=== PATIENT | female | born 1935 | race Caucasian/White ===

== ENCOUNTER 2018-02-13 15:59 | Inpatient (IN) | payer MEDICARE, OTHER ==
[2018-02-13 17:55] LABS: ADD MAN DIFF? NO
[2018-02-13 18:01] LABS: BASOPHILS % 0.3 % (0.0-2.0); EOSINOPHILS # 0.1 10^3/ul (0.0-0.5); EOSINOPHILS % 1.3 % (0.0-7.0); HEMATOCRIT 35.1 % (37.0-47.0); LYMPHOCYTES # 3.7 10^3/ul (0.8-2.9); LYMPHOCYTES % 42.7 % (15.0-51.0); MEAN CORPUSCULAR HEMOGLOBIN 30.7 pg (29.0-33.0); MEAN CORPUSCULAR HGB CONC 31.3 g/dl (32.0-37.0); MEAN PLATELET VOLUME 11.4 fl (7.4-10.4); MONOCYTE # 0.7 10^3/ul (0.3-0.9); MONOCYTES % 8.2 % (0.0-11.0); NEUTROPHIL # 4.1 10^3/ul (1.6-7.5); NEUTROPHILS % 47.4 % (39.0-77.0); PLATELET COUNT 172 10^3/UL (140-415); RED BLOOD COUNT 3.58 10^6/ul (4.20-5.40); RED CELL DISTRIBUTION WIDTH 13.9 % (11.5-14.5)
[2018-02-13 18:01] LABS: WHITE BLOOD COUNT 8.7 10^3/ul (4.8-10.8)
[2018-02-13 18:06] LABS: ADD UMIC NO; UR ASCORBIC ACID NEGATIVE (NEGATIVE); UR BILIRUBIN (Dip) NEGATIVE (NEGATIVE); UR BLOOD (Dip) NEGATIVE (NEGATIVE); UR CLARITY CLEAR (CLEAR); UR COLOR STRAW (YELLOW); UR GLUCOSE (Dip) NEGATIVE (NEGATIVE); UR KETONES (Dip) NEGATIVE (NEGATIVE); UR LEUKOCYTE ESTERASE (Dip) NEGATIVE Leu/ul (NEGATIVE); UR NITRITE (Dip) NEGATIVE (NEGATIVE); UR SPECIFIC GRAVITY (Dip) 1.005 (1.003-1.030); UR TOTAL PROTEIN (Dip) NEGATIVE (NEGATIVE); UR UROBILINOGEN (Dip) NEGATIVE (NEGATIVE)
[2018-02-13 18:11] LABS: HEMOGLOBIN A1C 7.6 % (0-5.9)
[2018-02-13 18:17] LABS: ANION GAP 10 (5-13); BLOOD UREA NITROGEN 29 mg/dl (7-20); CALCIUM 9.4 mg/dl (8.4-10.2); CARBON DIOXIDE 24 mmol/L (21-31); CHLORIDE 105 mmol/L (97-110); CHOL/HDL RATIO 3.7 RATIO; CHOLESTEROL 165 mg/dl (100-200); CREATININE 1.08 mg/dl (0.44-1.00); GLUCOSE 171 mg/dl (70-220); HDL CHOLESTEROL 44 mg/dl (33-92); LDL CHOLESTEROL,CALCULATED 93 mg/dl; POTASSIUM 4.6 mmol/L (3.5-5.1); SODIUM 139 mmol/L (135-144); TRIGLYCERIDES 139 mg/dl (0-149)
[2018-02-13 18:20] LABS: AMPHETAMINE/METHAMPHETAMINE Negative (NEGATIVE); BARBITURATES Negative (NEGATIVE); BENZODIAZEPINES Negative (NEGATIVE); CANNABINOIDS Negative (NEGATIVE); COCAINE Negative (NEGATIVE); INR 1.01; OPIATES Negative (NEGATIVE); PROTIME 13.4 Sec (11.9-14.9)
[2018-02-13 18:21] LABS: PARTIAL THROMBOPLASTIN TIME 35.4 Sec (23.0-35.0)
[2018-02-13 19:47] LABS: SALICYLATE < 1.0 mg/dl (5.0-30.0)
[2018-02-13] MEDS ORDERED: ONDANSETRON 4 MG INJ IV ×2 (20:00→21:30)
[2018-02-13] MEDS ORDERED: ACETAMINOPHEN 325 MG TAB PO ×2 (20:00→21:30)
[2018-02-13] MEDS: ASPIRIN 81 MG TAB PO (20:08)
[2018-02-13] MEDS ORDERED: NACL 0.9% 3 ML SYG IV (21:30)
[2018-02-13] MEDS ORDERED: NITROGLYCERIN (SL) 0.4 MG TAB SL (21:30)
[2018-02-13] MEDS: LORAZEPAM 2 MG INJ IV (22:07)
[2018-02-13 22:27] LABS: CREATINE KINASE 76 IU/L (23-200)
[2018-02-13 22:40] LABS: CK INDEX 3.1; CK-MB 2.35 ng/ml (0.0-2.4); TROPONIN-I 0.032 ng/ml (0.000-0.120)
[2018-02-14 03:58] LABS: ADD MAN DIFF? NO
[2018-02-14 04:08] LABS: HEMOGLOBIN A1C 7.5 % (0-5.9)
[2018-02-14 04:17] LABS: CREATINE KINASE 88 IU/L (23-200)
[2018-02-14 04:19] LABS: IRON 66 ug/dl (35-150)
[2018-02-14 04:21] LABS: ALANINE AMINOTRANSFERASE 31 IU/L (13-69); ALKALINE PHOSPHATASE 45 IU/L (42-121); ANION GAP 7 (5-13); ASPARTATE AMINO TRANSFERASE 31 IU/L (15-46); BILIRUBIN,TOTAL 0.2 mg/dl (0.2-1.3); BLOOD UREA NITROGEN 24 mg/dl (7-20); CALCIUM 9.3 mg/dl (8.4-10.2); CARBON DIOXIDE 27 mmol/L (21-31); CHLORIDE 108 mmol/L (97-110); CREATININE 0.97 mg/dl (0.44-1.00); GLUCOSE 164 mg/dl (70-220); MAGNESIUM 2.2 mg/dl (1.7-2.5); POTASSIUM 4.5 mmol/L (3.5-5.1); SODIUM 142 mmol/L (135-144)
[2018-02-14 04:22] LABS: ALBUMIN/GLOBULIN RATIO 0.93; BILIRUBIN,INDIRECT 0.2 mg/dl (0-1.1); CHOL/HDL RATIO 3.1 RATIO; CHOLESTEROL 135 mg/dl (100-200); HDL CHOLESTEROL 43 mg/dl (33-92); LDL CHOLESTEROL,CALCULATED 70 mg/dl; TOTAL PROTEIN 6.2 g/dl (6.1-8.1); TRIGLYCERIDES 109 mg/dl (0-149)
[2018-02-14 04:24] LABS: BASOPHILS % 0.3 % (0.0-2.0); EOSINOPHILS # 0.2 10^3/ul (0.0-0.5); EOSINOPHILS % 2.5 % (0.0-7.0); HEMATOCRIT 31.8 % (37.0-47.0); HEMOGLOBIN 9.9 g/dl (12.0-16.0); LYMPHOCYTES # 3.1 10^3/ul (0.8-2.9); LYMPHOCYTES % 48.4 % (15.0-51.0); MEAN CORPUSCULAR HEMOGLOBIN 30.5 pg (29.0-33.0); MEAN CORPUSCULAR HGB CONC 31.1 g/dl (32.0-37.0); MEAN CORPUSCULAR VOLUME 97.8 fl (82.0-101.0); MEAN PLATELET VOLUME 11.5 fl (7.4-10.4); MONOCYTE # 0.6 10^3/ul (0.3-0.9); MONOCYTES % 8.8 % (0.0-11.0); NEUTROPHIL # 2.5 10^3/ul (1.6-7.5); NEUTROPHILS % 39.8 % (39.0-77.0); PLATELET COUNT 156 10^3/UL (140-415); RED BLOOD COUNT 3.25 10^6/ul (4.20-5.40); RED CELL DISTRIBUTION WIDTH 13.8 % (11.5-14.5)
[2018-02-14 04:24] LABS: WHITE BLOOD COUNT 6.3 10^3/ul (4.8-10.8)
[2018-02-14 04:29] LABS: % IRON SATURATION 19 % SAT (22-52); TOTAL IRON BINDING CAPACITY 340 ug/dl (241-421)
[2018-02-14 04:30] LABS: CK INDEX 3.1; CK-MB 2.69 ng/ml (0.0-2.4); TROPONIN-I 0.039 ng/ml (0.000-0.120)
[2018-02-14 04:55] LABS: FERRITIN 47.4 ng/ml (11.1-264.0)
[2018-02-14] MEDS ORDERED: HEPARIN 5,000 UNIT/0.5 ML VIAL (09:04)
[2018-02-14] MEDS: ASPIRIN 81 MG TAB PO (09:08)
[2018-02-14] MEDS: DILTIAZEM (CD) 120 MG CAP PO (09:09)
[2018-02-14] MEDS: HEPARIN SODIUM 5,000 UNIT/ML VIAL SC (09:10)
[2018-02-14] MEDS: LISINOPRIL 5 MG TAB PO (15:42)
== END 2018-02-14 17:30 | disposition home or self-care (01) | DRG 305 ==
LOC: E/R 15:59 → TEL 20:00
PROVIDERS: Internal Medicine
DX: I16.0 Hypertensive urgency (principal); I50.9 Heart failure, unspecified; E88.81 Metabolic syndrome and other insulin resistance; E11.9 Type 2 diabetes mellitus without complications; D64.9 Anemia, unspecified; J44.9 Chronic obstructive pulmonary disease, unspecified; R42 Dizziness and giddiness; E03.9 Hypothyroidism, unspecified; E78.5 Hyperlipidemia, unspecified; I87.8 Other specified disorders of veins; I11.0 Hypertensive heart disease with heart failure; Z91.11 Patient's noncompliance with dietary regimen; Z79.82 Long term (current) use of aspirin; Z79.84 Long term (current) use of oral hypoglycemic drugs; Z87.891 Personal history of nicotine dependence
CPT/HCPCS: 70450; 70551; 71045; 80048; 80053; 80061; 80307; 81003; 82550; 82553; 82728; 82962; 83036; 83540; 83735; 84443; 84484; 85025; 85610; 85730; 86850; 86900; 86901; 93005; 93306; 93880; 99285-25